=== PATIENT | male | born 1965 | race Caucasian/White ===

== ENCOUNTER → 2018-01-25 | Outpatient (CLI) | payer OTHER ==
[2018-01-25 09:03] LABS: PLATELET COUNT, AUTOMATED 269 K/uL (150-450)
== END ==
LOC: LAB 08:36
PROVIDERS: ATTEND Orthopaedic Surgery Hand Surgery
DX: M25.541 Pain in joints of right hand (principal); M25.441 Effusion, right hand
CPT/HCPCS: 36415; 84550; 85025; 85651; 86038; 86140; 86430

== ENCOUNTER 2018-06-19 02:28 | Day surgery (SDC) | payer OTHER ==
[2018-06-19] VITALS (9 sets, daily range): BP systolic 107–154; BP diastolic 67–98
[~2018-06-19] VITALS: Ht 172.7 cm; Wt 83.0 kg
[~2018-06-19 02:28] MED LIST: MELO-205 PO; MELO-207 PO; SERT-184 PO; SERT25TA87 PO
[2018-06-19] MEDS ORDERED: LIDOCAINE/SOD BICARB 8.4% SYR ID ONE (06:30)
[2018-06-19] MEDS ORDERED: NORMOSOL R SOLN(*) 1000 ML BAG 1,000 ML IV PRN (06:30)
[2018-06-19] MEDS ORDERED: LIDOCAINE MPF 1% 5 ML VIAL ONE (07:08)
[2018-06-19] MEDS ORDERED: PROPOFOL EMUL(*) 10MG/ML 20 ML 40 ML ONE (07:08)
--- NOTE | 2018-06-19 07:55 | Short(Outpt) Discharge Summary ---
Discharge Summary Reason for Hosp/Final Diag: (1) Colon cancer screening Status: Chronic Hospital Course & Plan: Colonoscopy completed without problems. Departure Discharge to: Home, Self Care Discharge Instructions Home Meds Reported Medications Meloxicam (MELOXICAM) 15 Mg Tablet, 15 MG PO QDAY 06/07/18 Sertraline Hcl (SERTRALINE HCL) 50 Mg Tablet, 1 TAB PO QDAY, TAB 06/07/18 Diet: Regular Activity: As Tolerated Special Instructions: Your colonoscopy was completed without any problems and your prep was excellent (Good Job!!). I didn't find any cancer, polyps or other abnormalities; it was completely normal. I recommend that your next colonoscopy be in 10 years for continued colorectal cancer screening. CORNELIUS MENON MD Jun 19, 2018 07:54
== END 2018-06-19 10:15 | disposition home or self-care (01) ==
LOC: OR 02:28
PROVIDERS: ATTEND Surgery
DX: Z12.11 Encounter for screening for malignant neoplasm of colon (principal); F32.9 Major depressive disorder, single episode, unspecified
CPT/HCPCS: J2001; J2704